=== PATIENT | female | born 1955 | race Caucasian/White ===

== ENCOUNTER 2021-09-10 06:00 | Outpatient (RCR) | payer MEDICARE, SELFPAY | END 2021-09-20 23:59 | disposition home or self-care (01) | LOC: SPT 06:00 | PROVIDERS: Family Provider Internal Medicine; PCP Internal Medicine; Referring Provider Chiropractor; Visit Provider Chiropractor | DX: M54.50 Low back pain, unspecified (principal) | CPT/HCPCS: 97110; 97161 ==

== ENCOUNTER 2021-09-21 06:00 | Outpatient (RCR) | payer MEDICARE, SELFPAY | END 2021-10-20 23:59 | disposition home or self-care (01) | LOC: SPT 06:00 | PROVIDERS: PCP Internal Medicine; Referring Provider Chiropractor; Visit Provider Chiropractor | DX: M54.50 Low back pain, unspecified (principal) | CPT/HCPCS: 97110 ==

== ENCOUNTER 2021-10-21 06:00 | Outpatient (RCR) | payer MEDICARE, SELFPAY | END 2021-11-20 23:59 | disposition home or self-care (01) | LOC: SPT 06:00 | PROVIDERS: PCP Internal Medicine; Referring Provider Chiropractor; Visit Provider Chiropractor | DX: M54.50 Low back pain, unspecified (principal) | CPT/HCPCS: 97110 ==

== ENCOUNTER → 2022-03-25 16:41 | Outpatient (BNVA) | payer MEDICARE, SELFPAY | PROVIDERS: PCP Internal Medicine; Visit Provider Internal Medicine Pulmonary Disease | DX: R06.09 Other forms of dyspnea; I10 Essential (primary) hypertension; R05.3 Chronic cough; J30.9 Allergic rhinitis, unspecified; Z77.22 Contact with and (suspected) exposure to environmental tobacco smoke (acute) (chronic) | CPT/HCPCS: 36415; 71046; 80053; 82103; 82785; 83880; 85025; 86003; 99204 ==

== ENCOUNTER → 2022-05-03 09:09 | Outpatient (BNVA) | payer MEDICARE, SELFPAY | PROVIDERS: PCP Internal Medicine; Visit Provider Internal Medicine Pulmonary Disease | DX: R05.3 Chronic cough (principal); J82.83 Eosinophilic asthma; R06.09 Other forms of dyspnea; G47.33 Obstructive sleep apnea (adult) (pediatric); Z77.22 Contact with and (suspected) exposure to environmental tobacco smoke (acute) (chronic) | CPT/HCPCS: 99214 ==

== ENCOUNTER 2022-06-27 10:54 | Outpatient (CLI) | payer OTHER, SELFPAY | END 2022-06-27 10:55 | disposition home or self-care (01) | LOC: SLEEP 06-28 10:55 | PROVIDERS: PCP Internal Medicine; Visit Provider Internal Medicine Pulmonary Disease | DX: G47.19 Other hypersomnia (principal) | CPT/HCPCS: G0399 ==

== ENCOUNTER 2022-09-03 09:56 | Outpatient (CLI) | payer OTHER, SELFPAY ==
--- NOTE | 2022-09-03 10:15 | USCV_ITS ---
Anabel Gutiérrez Age: 67 Gender: F : 1955 Exam Date: 09/03/2022 10:39 Ordering Phys: Nick Baldwin MD Technologist: KRISTIN Exam Location: [facility] – [place] Indication: Dyspnea BP: 156 / 76 HR: 71 Rhythm: Sinus Technical Quality: Adequate MEASUREMENTS (Male / Female) Normal Values 2D ECHO LV Diastolic Diameter PLAX 3.5 cm 4.2 - 5.9 / 3.9 - 5.3 cm LV Systolic Diameter PLAX 1.8 cm LV Chamber Size 4.6 cm IVS Diastolic Thickness 1.3 cm 0.6 - 1.0 / 0.6 - 0.9 cm IVS Systolic Thickness 1.8 cm LVPW Diastolic Thickness 1.4 cm 0.6 - 1.0 / 0.6 - 0.9 cm LVPW Systolic Thickness 1.1 cm LVOT Diameter 2.1 cm LV Ejection Fraction 2D Teich 48.6 % LV Ejection Fraction MOD 2C 41.3 % LV Ejection Fraction 2C AL 43.8 % LA Diameter 2.7 cm LA Width 2.8 cm LA Height 4.0 cm RA Width 3.5 cm RA Height 4.0 cm Aorta at Sinotubular Diameter 2.6 cm IVC Diameter 1.6 cm M-MODE Aortic Annulus Diameter 2.8 cm LA Ao Ratio MM 1.1 MV E Point Septal Separation 0.4 cm DOPPLER AV Peak Velocity 154.0 cm/s LVOT Peak Velocity 104.0 cm/s AV Area Cont Eq vti 2.4 cm squared AV Area Cont Eq pk 2.3 cm squared MV Peak Velocity 98.0 cm/s MV Area PHT 3.5 cm squared Mitral E to A Ratio 0.9 MV E' Velocity 45.5 cm/s Mitral E to MV E' Ratio 13.2 Mitral E to LV E' Lateral Ratio 11.9 Mitral E to LV E' Septal Ratio 15.1 TR Peak Velocity 88.6 cm/s TR Peak Gradient 3.1 mmHg TR Mean Velocity 64.0 cm/s TR Mean Gradient 1.7 mmHg TR Velocity Time Integral 21.1 cm TV Peak E Velocity 72.0 cm/s Right Atrial Pressure 3.0 mmHg Pulmonary Artery Systolic Pressu 6.1 mmHg RV Acceleration Time 0.1 s RV Ejection Time 0.3 s RV AcT/ET 0.3 FINDINGS Left Ventricle Normal left ventricular size, systolic function and wall thickness, with no regional wall motion abnormalities. Left ventricular ejection fraction is estimated at 60 %. Grade I/IV diastolic dysfunction (abnormal relaxation filling pattern), normal to mildly elevated filling pressures. Right Ventricle The right ventricle is normal in size and function. Right Atrium The right atrium is normal in size. Left Atrium The left atrium is normal in size. Mitral Valve Structurally normal mitral valve without significant stenosis or prolapse. There is no mitral regurgitation. Aortic Valve Structurally normal aortic valve without significant sclerosis or stenosis. Trace aortic regurgitation. Tricuspid Valve Structurally normal tricuspid valve without significant stenosis or regurgitation. Pulmonary artery systolic pressure is normal. Pulmonic Valve Structurally normal pulmonic valve without significant stenosis. Trace pulmonic regurgitation. Pericardium Normal pericardium without effusion. Aorta Normal ascending aorta dimension. IVC The inferior vena cava appears normal. CONCLUSIONS 1-Normal left ventricular size, systolic function and wall thickness, with no regional wall motion abnormalities. Left ventricular ejection fraction is estimated at 60 %. Grade I/IV diastolic dysfunction (abnormal relaxation filling pattern), normal to mildly elevated filling pressures. 2-No significant valve abnormalities. 3-There is no pericardial effusion. 4-Right atrial pressure is around 5 mm of mercury. Brenna Patterson MD (Electronically Signed) Final Date: 03 September 2022 17:00 S
== END 2022-09-03 09:57 | disposition home or self-care (01) ==
PROVIDERS: PCP Internal Medicine; Visit Provider Internal Medicine Pulmonary Disease
DX: R06.09 Other forms of dyspnea (principal); R42 Dizziness and giddiness
CPT/HCPCS: 93306

== ENCOUNTER 2022-10-23 20:00 | Outpatient (CLI) | payer OTHER, SELFPAY | END 2022-10-23 20:01 | disposition home or self-care (01) | LOC: SLEEP 10-24 06:34 | PROVIDERS: PCP Internal Medicine; Visit Provider Internal Medicine Pulmonary Disease | DX: G47.33 Obstructive sleep apnea (adult) (pediatric) (principal) | CPT/HCPCS: 95811 ==

== ENCOUNTER 2023-02-18 09:58 | Outpatient (CLI) | payer MEDICARE, SELFPAY ==
[2023-02-18 10:19] VITALS: PULSE 71; RESP 18; O2SAT 97
[2023-02-18] MEDS: albuterol 2.5 mg/3 mL Neb INHALATION (10:22)
[2023-02-18 10:24] VITALS: PULSE 72
== END 2023-02-18 09:59 | disposition home or self-care (01) ==
LOC: RT 09:58
PROVIDERS: PCP Internal Medicine; Visit Provider Internal Medicine Pulmonary Disease
DX: J45.909 Unspecified asthma, uncomplicated (principal)
CPT/HCPCS: 94060; 94618; 94726; 94729; J7613

== ENCOUNTER → 2023-06-02 14:03 | Outpatient (BNVA) | payer MEDICARE, SELFPAY | PROVIDERS: PCP Internal Medicine; Visit Provider Internal Medicine Pulmonary Disease | DX: J06.9 Acute upper respiratory infection, unspecified (principal); R05.3 Chronic cough; J82.83 Eosinophilic asthma; G47.33 Obstructive sleep apnea (adult) (pediatric); K11.7 Disturbances of salivary secretion; Z99.89 Dependence on other enabling machines and devices; Z77.22 Contact with and (suspected) exposure to environmental tobacco smoke (acute) (chronic) | CPT/HCPCS: 99214 ==

== ENCOUNTER → 2023-10-06 12:52 | Outpatient (BNVA) | payer MEDICARE, SELFPAY | PROVIDERS: PCP Internal Medicine; Visit Provider Internal Medicine Pulmonary Disease | DX: R05.3 Chronic cough (principal); J82.83 Eosinophilic asthma; G47.33 Obstructive sleep apnea (adult) (pediatric); M79.89 Other specified soft tissue disorders | CPT/HCPCS: 99214 ==

== ENCOUNTER 2023-11-10 11:13 | Outpatient (CLI) | payer MEDICARE, SELFPAY ==
--- NOTE | 2023-11-10 11:17 | USCV_ITS ---
Anabel Gutiérrez Age: 68 Gender: F : 1955 Exam Date: 11/10/2023 11:52 Ordering Phys: Bharath Mata DO Technologist: CT Exam Location: [facility] – [place] Indication: murmur BP: 160 / 90 HR: 66 Rhythm: Sinus Technical Quality: Adequate MEASUREMENTS (Male / Female) Normal Values 2D ECHO LVOT Diameter 1.9 cm LV Ejection Fraction MOD 2C 69.1 % LV Ejection Fraction 2C AL 69.2 % LA Diameter 3.3 cm RA Systolic Volume 4C AL 56.3 ml RA Systolic Volume 4C MOD 55.5 ml LA Sys Volume AL 54.1 cm cubed LA Sys Volume Index AL 26.7 cm cubed/m squared Aorta at Sinotubular Diameter 1.8 cm M-MODE LA Ao Ratio MM 1.7 AV Cusp Separation MM 1.6 cm DOPPLER AV Peak Velocity 150.0 cm/s LVOT Peak Velocity 124.0 cm/s AV Area Cont Eq vti 2.8 cm squared AV Area Cont Eq pk 2.3 cm squared MV Peak Velocity 222.0 cm/s MV Area PHT 3.3 cm squared Mitral E to A Ratio 0.9 TV Peak Velocity 156.0 cm/s TR Peak Velocity 179.0 cm/s TR Peak Gradient 12.8 mmHg TV Peak E Velocity 91.0 cm/s Right Atrial Pressure 3.0 mmHg Pulmonary Artery Systolic Pressu 15.8 mmHg PV Peak Velocity 113.8 cm/s FINDINGS Left Ventricle Normal left ventricular size and systolic function, EF 69%.no regional wall motion abnormalities. Mild left ventricular hypertrophy. Grade I/IV diastolic dysfunction (abnormal relaxation filling pattern), normal to mildly elevated filling pressures. Right Ventricle The right ventricle is normal in size and function. Right Atrium The right atrium is normal in size. Left Atrium Upper limit of normal size. Mitral Valve Trace mitral valve regurgitation. Aortic Valve No gross abnormalities noted Tricuspid Valve Trace tricuspid valve regurgitation. Pulmonic Valve Trace pulmonary valve regurgitation. Pericardium Normal pericardium without effusion. Aorta Normal ascending aorta dimension. IVC Inferior vena cava not visualized. CONCLUSIONS Normal left ventricular size and systolic function, EF 69%.no regional wall motion abnormalities. Mild left ventricular hypertrophy. Grade I/IV diastolic dysfunction (abnormal relaxation filling pattern), normal to mildly elevated filling pressures. Left atrium: Upper limit of normal size. Trace of mitral, tricuspid and pulmonic regurgitation There is no pericardial effusion. There are no intracardiac masses. Compared to the previous study from 09/03/2022, there may not be a significant change Dr Shahzad Hu MD [facility] (Electronically Signed) Final Date: 13 Nov 2023 08:33 S
== END 2023-11-10 11:14 | disposition home or self-care (01) ==
LOC: RAD 11:13
PROVIDERS: PCP Internal Medicine; Visit Provider Internal Medicine
DX: E87.70 Fluid overload, unspecified (principal); I50.30 Unspecified diastolic (congestive) heart failure
CPT/HCPCS: 93306

== ENCOUNTER 2024-01-28 10:39 | Outpatient (RCR) | payer MEDICARE, SELFPAY | END 2024-02-21 23:59 | disposition home or self-care (01) | LOC: SPT 10:39 | PROVIDERS: PCP Internal Medicine; Visit Provider Internal Medicine | DX: M25.562 Pain in left knee (principal) | CPT/HCPCS: 97110; 97161 ==

== ENCOUNTER 2024-02-22 06:00 | Outpatient (RCR) | payer MEDICARE, SELFPAY | END 2024-03-05 23:59 | disposition home or self-care (01) | LOC: SPT 06:00 | PROVIDERS: PCP Internal Medicine; Visit Provider Internal Medicine | DX: M25.562 Pain in left knee (principal) | CPT/HCPCS: 97110 ==

== ENCOUNTER 2024-09-29 11:24 | Outpatient (CLI) | payer MEDICARE, SELFPAY ==
--- NOTE | 2024-09-29 11:31 | MM_ITS ---
WS: [id number] BILATERAL SCREENING DIGITAL TOMOSYNTHESIS MAMMOGRAM WITH CAD HISTORY: SCREENING COMPARISON: 05/24/2014 Bilateral CC and MLO views with tomosynthesis and synthetic mammography submitted. Computer aided detection analyzed. Breast composition: There are scattered areas of fibroglandular density. No suspicious masses, microcalcifications or architectural distortion. MM/MM scr BI tomosynthesis [id number] IMPRESSION: BI-RADS: 2 - Benign. FOLLOW UP: 1 Year Follow-up
== END 2024-09-29 11:25 | disposition home or self-care (01) ==
PROVIDERS: PCP Family Medicine; Visit Provider Family Medicine
DX: Z12.31 Encounter for screening mammogram for malignant neoplasm of breast (principal); R92.323 Mammographic fibroglandular density, bilateral breasts
CPT/HCPCS: 77063; 77067